=== PATIENT | male | born 2005 | race Caucasian/White ===

== ENCOUNTER 2023-04-28 14:45 | Inpatient (IN) | payer MEDICAID ==
[~2023-04-28] VITALS: Ht 180.3 cm; Wt 72.6 kg
[2023-04-28] MEDS ORDERED: LORazepam 2 MG TABLET PO PRN (17:15)
[2023-04-28] MEDS ORDERED: ZOLPIDEM TARTRATE 10 MG TABLET PO PRN (17:15)
[2023-04-28] MEDS ORDERED: HALOPERIDOL 5 MG TABLET PO PRN (17:15)
[2023-04-28 18:10] VITALS: BP 120/73; PULSE 92; RESP 18; TEMP 97.9
[2023-04-28 20:35] VITALS: RESP 17
[2023-04-29] MEDS ORDERED: CloNIDine HCL 0.1 MG TABLET PO PRN (05:30)
[2023-04-29] MEDS ORDERED: IBUPROFEN 600 MG TABLET PO PRN (05:30)
[2023-04-29] MEDS ORDERED: ALBUTEROL SULFATE HFA 90 MCG/PUFF 8 GM INHALER IH PRN (05:30)
[2023-04-29] MEDS ORDERED: BENZOCAINE/MENTHOL LOZENGE PO PRN (05:30)
[2023-04-29] MEDS ORDERED: DOCUSATE SODIUM 100 MG CAPSULE PO PRN (05:30)
[2023-04-29] MEDS ORDERED: OMEPRAZOLE 20 MG CAPSULE PO PRN (05:30)
[2023-04-29] MEDS ORDERED: MAGNESIUM HYDROXIDE SUSPENSION 30 ML UDCUP PO PRN (05:30)
[2023-04-29] MEDS ORDERED: BACITRACIN 28 GM OINTMENT TP PRN (05:30)
[2023-04-29] MEDS ORDERED: LOPERAMIDE HCL 2 MG CAPSULE PO PRN (05:30)
[2023-04-29] MEDS ORDERED: ONDANSETRON HCL 4 MG TABLET PO PRN (05:30)
[2023-04-29] MEDS ORDERED: ACETAMINOPHEN 325 MG TABLET PO PRN (05:30)
[2023-04-29] MEDS ORDERED: MAG HYDROX/AL HYDROX/SIMETH ES 30 ML SUSPENSION UDCUP PO PRN (05:30)
[2023-04-29] MEDS ORDERED: PETROLATUM,WHITE 28 GM JELLY TP PRN (05:30)
[2023-04-29 08:19] VITALS: BP 131/87; PULSE 92; RESP 18; TEMP 97.8
[2023-04-29 09:06] LABS: BASOPHILS % (AUTO) 0.4 % (0.0-2.0); HEMATOCRIT 48.6 % (41-53); LYMPHOCYTES # (AUTO) 2.7 K/uL (1.0-4.8); LYMPHOCYTES % (AUTO) 36.7 % (22.0-44.0); MEAN CORPUSCULAR HEMOGLOBIN 29.7 pg (26.0-34.0); MEAN CORPUSCULAR VOLUME 90 fL (80-100); MONOCYTES # (AUTO) 0.7 K/uL (0.1-1.0); MONOCYTES % (AUTO) 9.5 % (2.0-9.0); NEUTROPHILS # (AUTO) 3.8 K/uL (1.8-7.7); NEUTROPHILS % (AUTO) 52.4 % (40.0-70.0); PLATELET COUNT (AUTO) 252 K/uL (150-450); RED BLOOD CELL COUNT(AUTO) 5.41 MIL/uL (4.50-5.90); RED CELL DISTRIBUTION WIDTH 13.5 % (11.5-14.5)
[2023-04-29 09:23] LABS: HEMOGLOBIN A1C 5.1 % (3.8-5.6)
[2023-04-29 09:30] LABS: ALANINE AMINOTRANSFERASE 15 U/L (12-78); ALBUMIN 3.9 g/dL (3.4-5.0); ALKALINE PHOSPHATASE 106 U/L (46-116); ANION GAP 11 mmol/L (8-16); ASPARTATE AMINOTRANSFERASE 19 U/L (15-37); BILIRUBIN,TOTAL 0.3 mg/dL (0.1-1.0); CALCIUM, TOTAL 9.5 mg/dL (8.8-10.5); CARBON DIOXIDE 27 mmol/L (22-29); CHLORIDE 102 mmol/L (98-107); CHOL/HDL RATIO 3.7 (4.2-7.3); CHOLESTEROL 156 mg/dL (131-200); CREATININE 1.07 mg/dL (0.60-1.30); FREE T4 (FREE THYROXINE) 1.17 ng/dL (0.76-1.46); GLOMERULAR FILTR. RATE CALC > 60 mL/min (>60); GLUCOSE,RANDOM 78 mg/dL (70-110); HDL CHOLESTEROL 42 mg/dL (40-60); LDL CHOL (CALC.) 99 mg/dL (0-130); POTASSIUM 4.3 mmol/L (3.5-5.1); SODIUM SERUM 140 mmol/L (136-145); TOTAL PROTEIN, SERUM 7.1 g/dL (6.4-8.2); TRIGLYCERIDES 73 mg/dL (15-150)
[2023-04-29] MEDS: OLANZapine 7.5 MG TABLET PO SCH (20:29)
[2023-04-29] MEDS: LITHIUM CARBONATE 300 MG CAPSULE PO SCH (20:29)
[2023-04-29 20:34] VITALS: BP 134/86; PULSE 93; RESP 18; TEMP 98.1
[2023-04-30 08:30] VITALS: BP 108/68; PULSE 69; RESP 19; TEMP 97.7
[2023-04-30] MEDS: LITHIUM CARBONATE 300 MG CAPSULE PO SCH ×2 (09:22→16:35)
[2023-04-30 20:21] VITALS: BP 124/79; PULSE 91; RESP 19; TEMP 97.7
[2023-04-30] MEDS: OLANZapine 7.5 MG TABLET PO SCH (20:30)
[2023-05-01 08:35] VITALS: BP 105/67; PULSE 69; RESP 17; TEMP 97.5
[2023-05-01] MEDS: LITHIUM CARBONATE 300 MG CAPSULE PO SCH ×2 (09:03→16:29)
[2023-05-01] MEDS: OLANZapine 7.5 MG TABLET PO SCH (20:28)
[2023-05-01 21:10] VITALS: BP 141/97; PULSE 113; RESP 18; TEMP 97.4
[2023-05-02 08:54] VITALS: BP 149/91; PULSE 91; RESP 19; TEMP 97.1
[2023-05-02] MEDS: LITHIUM CARBONATE 300 MG CAPSULE PO SCH ×2 (09:21→16:55)
[2023-05-02 20:45] VITALS: BP 127/84; PULSE 74; RESP 17; TEMP 98.4
[2023-05-02] MEDS: OLANZapine 7.5 MG TABLET PO SCH (20:48)
[2023-05-03 08:23] VITALS: BP 129/70; PULSE 84; RESP 18; TEMP 97.8
[2023-05-03] MEDS: LITHIUM CARBONATE 300 MG CAPSULE PO SCH ×2 (09:03→17:08)
[2023-05-03] MEDS: OLANZapine 7.5 MG TABLET PO SCH (20:23)
[2023-05-03 20:51] VITALS: BP 115/68; PULSE 76; RESP 18; TEMP 98
[2023-05-04 08:38] VITALS: BP 114/60; PULSE 88; RESP 17; TEMP 97.6
[2023-05-04] MEDS: LITHIUM CARBONATE 300 MG CAPSULE PO SCH ×2 (08:43→17:05)
[2023-05-04] MEDS: OLANZapine 7.5 MG TABLET PO SCH (20:13)
[2023-05-04 20:26] VITALS: BP 119/76; PULSE 98; RESP 18; TEMP 97.9
[2023-05-05 08:32] VITALS: BP 109/62; PULSE 76; RESP 19; TEMP 98.4
[2023-05-05] MEDS: LITHIUM CARBONATE 300 MG CAPSULE PO SCH ×2 (08:53→17:33)
[2023-05-05 20:27] VITALS: BP 86/19; PULSE 128; RESP 19; TEMP 98.3
[2023-05-05] MEDS ORDERED: OLAN7.5T22 PO (20:46)
[2023-05-05] MEDS ORDERED: LITH300C3 PO (20:46)
[2023-05-05] MEDS: OLANZapine 7.5 MG TABLET PO SCH (21:06)
[2023-05-06 08:31] VITALS: BP 114/72; PULSE 76; RESP 18; TEMP 97.5
[2023-05-06] MEDS: LITHIUM CARBONATE 300 MG CAPSULE PO SCH (10:11)
== END 2023-05-06 17:00 | disposition home or self-care (01) | DRG 750 ==
LOC: B2S 17:03
PROVIDERS: ADMIT Psychiatry & Neurology Psychiatry; ATTEND Psychiatry & Neurology Psychiatry
DX: F25.9 Schizoaffective disorder, unspecified (principal); F41.9 Anxiety disorder, unspecified; K59.00 Constipation, unspecified; G47.00 Insomnia, unspecified
CPT/HCPCS: 80053; 80061; 80178; 83036; 84439; 84443; 85025